=== PATIENT | female | born 1935 | race Caucasian/White ===

== ENCOUNTER 2023-11-23 12:12 | Emergency (ER) | payer OTHER, MEDICARE ==
[2023-11-23 14:29] VITALS: TEMP 97.9; BMI 19.2
[2023-11-23 17:06] LABS: BASO % 0.5 % (0-2.0); EOS % 0.5 % (0-4.5); HEMATOCRIT 35.9 % (32.4-45.2); LYMPH % 10.8 % (8-40); MCH 33.9 pg (25.7-33.7); MCHC 33.4 g/dl (32.0-36.0); MEAN CELL VOLUME 101.7 fl (80-96); MEAN PLT VOLUME 8.9 fl (7.5-11.1); MONO % 12.6 % (3.8-10.2); NEUT % 75.6 % (42.8-82.8); PLATELET COUNT 230 10^3/uL (134-434); RBC 3.53 M/mm3 (3.60-5.2); RDW 21.2 % (11.6-15.6)
[2023-11-23 17:25] LABS: INR 0.97 (0.83-1.09); PROTHROMBIN TIME (PATIENT) 11.3 SEC (9.7-13.0)
[2023-11-23 17:26] LABS: POTASSIUM 4.3 mmol/L (3.5-5.1)
[2023-11-23 17:28] LABS: ACTIVATED PTT 30.3 SECONDS (25.2-36.5); ALBUMIN 3.8 g/dl (3.4-5.0); BLOOD UREA NITROGEN 14.2 mg/dL (7-18); CALCIUM 8.9 mg/dL (8.5-10.1); MAGNESIUM 1.9 mg/dL (1.8-2.4)
[2023-11-23 17:31] LABS: CREATININE 0.5 mg/dL (0.55-1.3)
[2023-11-23 17:33] LABS: BILIRUBIN,TOTAL 0.8 mg/dL (0.2-1); TOT PROT 7.3 g/dl (6.4-8.2)
[2023-11-23 17:51] LABS: ANISOCYTOSIS 2+; MACROCYTOSIS 0
[2023-11-23 18:56] LABS: EPI CELLS 4 /uL (0-25.1); HYALINE CASTS 0 /uL (0-3.1); PH,URINE 7.5 (5.0-8.0); URINE APPEARANCE CLOUDY; URINE BACTERIA >9,000 /uL (0-1359); URINE BILIRUBIN NEGATIVE (NEGATIVE); URINE COLOR YELLOW; URINE GLUCOSE (UA) NEGATIVE (NEGATIVE); URINE KETONE NEGATIVE (NEGATIVE); URINE LEUK ESTERASE 2+ (NEGATIVE); URINE NITRITE NEGATIVE (NEGATIVE); URINE PROTEIN NEGATIVE (NEGATIVE); URINE RBC 49 /uL (0-23.9); URINE UROBILINOGEN 0.2 mg/dL (0.2-1.0); URINE WBC 556 /uL (0-25.8)
[2023-11-24 01:36] VITALS: BP 145/86; PULSE 98; RESP 20
== END 2023-11-24 01:51 ==
LOC: JER 12:12
DX: S01.81XA Laceration without foreign body of other part of head, initial encounter (principal); W18.39XA Other fall on same level, initial encounter; Z20.822 Contact with and (suspected) exposure to COVID-19
CPT/HCPCS: 0241U-QW; 36415; 70450-TC; 71045-TC-FY; 72125-TC; 72170-TC-FY; 73552-TC-LT-FY; 73562-TC-LT-FY; 80053; 81003; 83735; 84484; 85025; 85610; 85730; 87086; 87186; 99285-25

== ENCOUNTER 2025-02-23 00:59 | Inpatient (IN) | payer OTHER, MEDICARE ==
[2025-02-23 02:54] LABS: ABSOLUTE IMMATURE GRANULOCYTES 0.07 x10^3/uL (0.0-0.031); BASOPHILS # 0.05 x10^3/uL (0.01-0.08); EOSINOPHIL % 0.7 % (0.7-5.8); EOSINOPHILS # 0.06 x10^3/uL (0.04-0.36); HEMATOCRIT 34.5 % (34.1-44.9); HEMOGLOBIN 11.2 g/dL (11.2-15.7); MCHC 32.5 g/dl (32.2-35.5); MEAN CELL VOLUME 104.2 fl (79.4-94.8); MEAN PLT VOLUME 10.8 fl (9.4-12.3); MONOCYTE # 1.04 x10^3/uL (0.24-0.86); MONOCYTE % 11.4 % (4.7-12.5); PLATELET COUNT 241 x10^3/uL (182-369); RDW 18.6 % (12.5-17.0)
[2025-02-23 03:02] LABS: INR 1.6 (0.83-1.09); PROTHROMBIN TIME (PATIENT) 17.4 SEC (9.7-13.0)
[2025-02-23 03:04] LABS: ACTIVATED PTT 36.6 SECONDS (25.2-36.5)
[2025-02-23 03:14] LABS: POTASSIUM 3.9 mmol/L (3.5-5.1)
[2025-02-23 03:16] LABS: ALBUMIN 2.8 g/dl (3.4-5.0); BLOOD UREA NITROGEN 16.8 mg/dL (7-18); CALCIUM 8.7 mg/dL (8.5-10.1)
[2025-02-23 03:19] LABS: CREATININE 0.5 mg/dL (0.55-1.3)
[2025-02-23 03:21] LABS: BILIRUBIN,TOTAL 0.8 mg/dL (0.2-1)
[2025-02-23] MEDS ORDERED: PIPERACILLIN/TAZOB 3.375 GM 3.375 GM/50 ML BAG IVPB ONE (03:58)
[2025-02-23] MEDS ORDERED: VANCOMYCIN 1 GM PREMIX (F) 1 GM/200 ML BAG ONE (03:59)
[2025-02-23] MEDS ORDERED: DIPHTH,PERTUSS(ACELL),TET 0.5 ML DISP.SYRIN IM ONE (04:05)
[2025-02-23] MEDS ORDERED: ACETAMINOPHEN 325 MG TABLET (FP) ONE (04:05)
[2025-02-23] MEDS: VANCOMYCIN 1,000 MG in DEXTROSE 5%-WATER - 250 ML IVPB ONE (04:20)
[2025-02-23] MEDS: DIPHTH,PERTUSS(ACELL),TET 0.5 ML DISP.SYRIN IM ONE (04:20)
[2025-02-23] MEDS: ACETAMINOPHEN 325 MG TABLET (FP) PO ONE (04:20)
[2025-02-23] MEDS: PIPERACILLIN/TAZOB 3.375 GM 3.375 GM in DEXTROSE 5%-WATER - 50 ML IVPB ONE (04:20)
[2025-02-23 06:13] LABS: HEMATOCRIT 30.7 % (34.1-44.9); HEMOGLOBIN 10.1 g/dL (11.2-15.7); MCHC 32.9 g/dl (32.2-35.5); MEAN CELL VOLUME 103.7 fl (79.4-94.8); MEAN PLT VOLUME 11.8 fl (9.4-12.3); PLATELET COUNT 237 x10^3/uL (182-369); RDW 18.4 % (12.5-17.0)
[2025-02-23 06:28] LABS: CHLORIDE 102 mmol/L (98-107); POTASSIUM 3.7 mmol/L (3.5-5.1); SODIUM 133 mmol/L (136-145)
[2025-02-23 06:33] LABS: ALBUMIN 2.5 g/dl (3.4-5.0); ANION GAP 8 mmol/L (4-13); BLOOD UREA NITROGEN 15.6 mg/dL (7-18); CALCIUM 8.4 mg/dL (8.5-10.1); CO2 23 mmol/L (21-32); GLUCOSE,RANDOM 126 mg/dL (74-106)
[2025-02-23 06:34] LABS: MAGNESIUM 1.6 mg/dL (1.8-2.4)
[2025-02-23 06:36] LABS: CREATININE 0.4 mg/dL (0.55-1.3); PHOSPHOROUS 3.6 mg/dL (2.5-4.9); SGOT/AST 21 U/L (15-37); SGPT/ALT 14 U/L (13-61)
[2025-02-23 06:38] LABS: BILIRUBIN,TOTAL 0.9 mg/dL (0.2-1); TOT PROT 5.3 g/dl (6.4-8.2)
[2025-02-23 06:40] LABS: ALK PHOS 63 U/L (45-117)
[2025-02-23] MEDS: INSULIN ASPART SLIDING SCALE (NOVOLOG) 1 VIAL SQ SCH (06:44)
[2025-02-23] MEDS: LEVOTHYROXINE NA 75 MCG TABLET (FP) PO SCH (08:41)
[2025-02-23] MEDS: SENNOSIDES 8.6MG TABLET (FP) PO SCH (10:48)
[2025-02-23] MEDS: ACETAMINOPHEN 325 MG TABLET (FP) PO PRN (11:52)
[2025-02-23] MEDS: RIVAROXABAN 15 MG TABLET PO SCH (17:47)
[2025-02-23] MEDS: ACETAMINOPHEN 1000 MG/100 ML BAG IVPB PRN (22:07)
[2025-02-24 08:52] LABS: ABSOLUTE IMMATURE GRANULOCYTES 0.05 x10^3/uL (0.0-0.031); BASOPHILS # 0.05 x10^3/uL (0.01-0.08); EOSINOPHIL % 0.8 % (0.7-5.8); EOSINOPHILS # 0.07 x10^3/uL (0.04-0.36); HEMATOCRIT 30.5 % (34.1-44.9); HEMOGLOBIN 10.2 g/dL (11.2-15.7); MCHC 33.4 g/dl (32.2-35.5); MEAN CELL VOLUME 102.7 fl (79.4-94.8); MEAN PLT VOLUME 11.2 fl (9.4-12.3); MONOCYTE # 1.15 x10^3/uL (0.24-0.86); MONOCYTE % 13.7 % (4.7-12.5); PLATELET COUNT 242 x10^3/uL (182-369); RDW 18.7 % (12.5-17.0)
[2025-02-24 09:15] LABS: POTASSIUM 3.6 mmol/L (3.5-5.1)
[2025-02-24 09:18] LABS: ALBUMIN 2.5 g/dl (3.4-5.0); BLOOD UREA NITROGEN 9.4 mg/dL (7-18)
[2025-02-24 09:21] LABS: CREATININE 0.3 mg/dL (0.55-1.3)
[2025-02-24 09:22] LABS: BILIRUBIN,TOTAL 1.1 mg/dL (0.2-1); TOT PROT 5.2 g/dl (6.4-8.2)
[2025-02-24] MEDS: DEXTROSE 5%-0.45% SALINE 1,000 ML IV SCH (17:41)
[2025-02-25 08:27] LABS: ABSOLUTE IMMATURE GRANULOCYTES 0.05 x10^3/uL (0.0-0.031); BASOPHILS # 0.03 x10^3/uL (0.01-0.08); EOSINOPHIL % 0.8 % (0.7-5.8); EOSINOPHILS # 0.06 x10^3/uL (0.04-0.36); HEMATOCRIT 29.2 % (34.1-44.9); HEMOGLOBIN 9.7 g/dL (11.2-15.7); MCHC 33.2 g/dl (32.2-35.5); MEAN CELL VOLUME 103.5 fl (79.4-94.8); MEAN PLT VOLUME 11.3 fl (9.4-12.3); MONOCYTE # 1.16 x10^3/uL (0.24-0.86); MONOCYTE % 16.4 % (4.7-12.5); PLATELET COUNT 240 x10^3/uL (182-369); RDW 18.5 % (12.5-17.0)
[2025-02-25 08:45] LABS: POTASSIUM 3.7 mmol/L (3.5-5.1)
[2025-02-25 08:50] LABS: CALCIUM 7.5 mg/dL (8.5-10.1)
[2025-02-25 08:51] LABS: ALBUMIN 2.3 g/dl (3.4-5.0); BLOOD UREA NITROGEN 7.6 mg/dL (7-18)
[2025-02-25 08:52] LABS: CREATININE 0.3 mg/dL (0.55-1.3)
[2025-02-25 08:54] LABS: BILIRUBIN,TOTAL 0.9 mg/dL (0.2-1)
[2025-02-25 16:42] LABS: EPI CELLS 4 /uL (0-25.1); HYALINE CASTS 3 /uL (0-3.1); URINE APPEARANCE CLOUDY; URINE BACTERIA >9,000 /uL (0-1359); URINE BILIRUBIN 1+ (NEGATIVE); URINE COLOR DK YELLOW; URINE GLUCOSE (UA) NEGATIVE (NEGATIVE); URINE KETONE TRACE (NEGATIVE); URINE LEUK ESTERASE 2+ (NEGATIVE); URINE NITRITE POSITIVE (NEGATIVE); URINE PROTEIN 1+ (NEGATIVE); URINE RBC 178 /uL (0-23.9); URINE WBC 664 /uL (0-25.8)
[2025-02-25 23:51] VITALS: BMI 17.5
[2025-02-26 08:51] LABS: HEMATOCRIT 30.3 % (34.1-44.9); HEMOGLOBIN 9.9 g/dL (11.2-15.7); MCHC 32.7 g/dl (32.2-35.5); MEAN CELL VOLUME 103.8 fl (79.4-94.8); MEAN PLT VOLUME 10.5 fl (9.4-12.3); PLATELET COUNT 198 x10^3/uL (182-369); RDW 18.2 % (12.5-17.0)
[2025-02-26] MEDS: IRON SUCROSE INJECTION 200 MG in SODIUM CHLORIDE 100 ML IVPB ONE (09:11)
[2025-02-26 09:52] LABS: POTASSIUM 3.4 mmol/L (3.5-5.1)
[2025-02-26 10:43] LABS: CALCIUM 7.7 mg/dL (8.5-10.1)
[2025-02-26 10:44] LABS: ALBUMIN 2.3 g/dl (3.4-5.0); BLOOD UREA NITROGEN 4.2 mg/dL (7-18)
[2025-02-26 10:47] LABS: CREATININE 0.2 mg/dL (0.55-1.3)
[2025-02-26 10:48] LABS: BILIRUBIN,TOTAL 0.8 mg/dL (0.2-1)
[2025-02-26] MEDS: PIPERACILLIN/TAZOB 3.375 GM 3.375 GM in DEXTROSE 5%-WATER - 50 ML IVPB SCH (12:10)
[2025-02-26] MEDS: POTASSIUM CHLORIDE ORAL LIQUID 20 MEQ/15 ML PO ONE (14:17)
[2025-02-26] MEDS: ALBUTEROL SO4 2.5/IPRATROPIUM 0.5 INH SOL 3 ML VIAL.NEB. NEB SCH (15:10)
[2025-02-26] MEDS: AMOX TR/POT CLAV 500MG/125MG TABLETS (FP) PO SCH (17:15)
[2025-02-26] MEDS: MIDODRINE HCL 2.5 MG TABLET PO SCH (17:15)
[2025-02-27 01:10] VITALS: RESP 18
[2025-02-27 09:10] LABS: POTASSIUM 3.3 mmol/L (3.5-5.1)
[2025-02-27 09:20] LABS: BLOOD UREA NITROGEN 6.6 mg/dL (7-18)
[2025-02-27] MEDS: FUROSEMIDE 20 MG TABLET (FP) PO SCH (09:21)
[2025-02-27] MEDS: PANTOPRAZOLE 40 MG TABLET PO SCH (09:21)
[2025-02-27] MEDS: POTASSIUM CHLORIDE ORAL LIQUID 20 MEQ/15 ML PO SCH (09:22)
[2025-02-27] MEDS: POLYETHYLENE GLYCOL (HEALTHYLAX) 3350 17 GM PACKET PO SCH (09:22)
[2025-02-27 09:25] LABS: CREATININE 0.2 mg/dL (0.55-1.3)
[2025-02-27 10:35] VITALS: TEMP 98.2
[2025-02-27] MEDS: KCL 10 MEQ IVPB 10 MEQ/100 ML INFUS.BAG IVPB SCH (12:33)
[2025-02-27 14:36] VITALS: BP 89/55; PULSE 93
== END 2025-02-27 16:00 | DRG 312 ==
LOC: JER 00:59 → JERBED 04:19 → J6S 06:09 → OBSVTOIN 17:12
PROVIDERS: ADMIT Student in an Organized Health Care Education/Training Program; ATTEND Family Medicine
DX: R55 Syncope and collapse (principal); E43 Unspecified severe protein-calorie malnutrition; R64 Cachexia; Z68.1 Body mass index [BMI] 19.9 or less, adult; E44.1 Mild protein-calorie malnutrition; E03.9 Hypothyroidism, unspecified; I10 Essential (primary) hypertension; I48.0 Paroxysmal atrial fibrillation; I08.1 Rheumatic disorders of both mitral and tricuspid valves; J47.9 Bronchiectasis, uncomplicated; L89.621 Pressure ulcer of left heel, stage 1; L89.611 Pressure ulcer of right heel, stage 1; R26.81 Unsteadiness on feet; R41.89 Other symptoms and signs involving cognitive functions and awareness; M81.0 Age-related osteoporosis without current pathological fracture; D64.9 Anemia, unspecified; S80.01XA Contusion of right knee, initial encounter; S01.81XA Laceration without foreign body of other part of head, initial encounter; W06.XXXA Fall from bed, initial encounter; Y93.9 Activity, unspecified; Y92.128 Other place in nursing home as the place of occurrence of the external cause; Y99.9 Unspecified external cause status; Z86.718 Personal history of other venous thrombosis and embolism; Z96.651 Presence of right artificial knee joint
CPT/HCPCS: 0241U-QW; 36415; 70450-TC; 70486-TC; 71045-TC-FY; 71250-TC; 72125-TC; 73502-TC-RT-FY; 73564-TC-RT-FY; 80048; 80053; 81003; 82272; 82607; 82746; 82962; 83540; 83550; 83735; 84100; 84484; 85025; 85027; 85610; 85730; 90715; 93005; 93010; 93306-TC; 94640; 97161-GP; 99285-25; G0378; J0131; J1756

== ENCOUNTER 2025-05-04 20:24 | Inpatient (IN) | payer OTHER, MEDICARE ==
[2025-05-04 21:48] LABS: ABSOLUTE IMMATURE GRANULOCYTES 0.10 x10^3/uL (0.0-0.031); BASOPHILS # 0.05 x10^3/uL (0.01-0.08); EOSINOPHIL % 1.0 % (0.7-5.8); EOSINOPHILS # 0.11 x10^3/uL (0.04-0.36); MCHC 33.1 g/dl (32.2-35.5); MEAN CELL VOLUME 107.0 fl (79.4-94.8); MEAN PLT VOLUME 10.7 fl (9.4-12.3); MONOCYTE # 1.26 x10^3/uL (0.24-0.86); MONOCYTE % 11.1 % (4.7-12.5); RDW 21.2 % (12.5-17.0)
[2025-05-04 21:57] LABS: INR 1.87 (0.83-1.09); PROTHROMBIN TIME (PATIENT) 20.6 SEC (9.7-13.0)
[2025-05-04 22:00] LABS: ACTIVATED PTT 34.2 SECONDS (25.2-36.5)
[2025-05-04 22:09] LABS: CO2 27.0 mmol/L (21-32); GLUCOSE,RANDOM 97.0 mg/dL (74-106)
[2025-05-04 22:11] LABS: CREATININE 0.4 mg/dL (0.55-1.3); SGOT/AST 28.0 U/L (15-37); SGPT/ALT 15.0 U/L (13-61)
[2025-05-04 22:12] LABS: TOT PROT 5.0 g/dl (6.4-8.2)
[2025-05-04 22:13] LABS: ALK PHOS 69.0 U/L (45-117)
[2025-05-04 22:59] LABS: HIV INTERPRETATION NEGATIVE (NEGATIVE)
[2025-05-04 23:00] LABS: HCV DIAGNOSTIC IN-HOUSE W/RFLX NON-REACTIVE (NONREACTIVE)
[2025-05-05 02:37] LABS: ABSOLUTE IMMATURE GRANULOCYTES 0.06 x10^3/uL (0.0-0.031); BASOPHILS # 0.03 x10^3/uL (0.01-0.08); EOSINOPHIL % 1.5 % (0.7-5.8); EOSINOPHILS # 0.10 x10^3/uL (0.04-0.36); MCHC 33.2 g/dl (32.2-35.5); MEAN CELL VOLUME 106.9 fl (79.4-94.8); MEAN PLT VOLUME 11.4 fl (9.4-12.3); MONOCYTE # 0.92 x10^3/uL (0.24-0.86); MONOCYTE % 13.4 % (4.7-12.5); RDW 21.4 % (12.5-17.0)
[2025-05-05] MEDS: SODIUM CHLORIDE 1,000 ML IV STA (02:59)
[2025-05-05] MEDS ORDERED: ALBUTEROL SO4 2.5/IPRATROPIUM 0.5 INH SOL 3 ML VIAL.NEB. NEB PRN (07:40)
[2025-05-05] MEDS ORDERED: ACETAMINOPHEN 1000 MG/100 ML BAG IVPB PRN (08:00)
[2025-05-05 09:57] LABS: ABSOLUTE IMMATURE GRANULOCYTES 0.06 x10^3/uL (0.0-0.031); BASOPHILS # 0.04 x10^3/uL (0.01-0.08); EOSINOPHIL % 1.6 % (0.7-5.8); EOSINOPHILS # 0.10 x10^3/uL (0.04-0.36); MCHC 32.6 g/dl (32.2-35.5); MEAN CELL VOLUME 106.7 fl (79.4-94.8); MEAN PLT VOLUME 10.9 fl (9.4-12.3); MONOCYTE # 0.78 x10^3/uL (0.24-0.86); MONOCYTE % 12.5 % (4.7-12.5); RDW 21.0 % (12.5-17.0)
[2025-05-05] MEDS ORDERED: MIDODRINE HCL 2.5 MG TABLET PO SCH (10:00)
[2025-05-05] MEDS ORDERED: PANTOPRAZOLE SODIUM 40 MG VIAL IVPUSH SCH (10:00)
[2025-05-05] MEDS: DEXTROSE 5%-NORMAL SALINE 1,000 ML IV SCH (11:38)
[2025-05-05] MEDS: PANTOPRAZOLE SODIUM 40 MG VIAL IVPUSH SCH (11:39)
[2025-05-05] MEDS: MIDODRINE HCL 2.5 MG TABLET PO SCH (11:39)
[2025-05-05 12:11] LABS: CREATININE 0.3 mg/dL (0.55-1.3); GLUCOSE,RANDOM 85.0 mg/dL (74-106)
[2025-05-05 12:12] LABS: CO2 25.0 mmol/L (21-32)
[2025-05-05] MEDS: CALCIUM CARBONATE 650 MG TABLET PO SCH (12:17)
[2025-05-05 15:50] LABS: MCHC 33.5 g/dl (32.2-35.5); MEAN CELL VOLUME 101.1 fl (79.4-94.8); MEAN PLT VOLUME 11.3 fl (9.4-12.3); RDW 22.0 % (12.5-17.0)
[2025-05-06] MEDS: LEVOTHYROXINE NA 75 MCG TABLET (FP) PO SCH (06:01)
[2025-05-06 08:50] LABS: MCHC 33.1 g/dl (32.2-35.5); MEAN CELL VOLUME 101.0 fl (79.4-94.8); MEAN PLT VOLUME 10.9 fl (9.4-12.3); RDW 23.3 % (12.5-17.0)
[2025-05-06 08:59] LABS: CO2 24.0 mmol/L (21-32); GLUCOSE,RANDOM 91.0 mg/dL (74-106)
[2025-05-06 09:02] LABS: CREATININE 0.3 mg/dL (0.55-1.3); SGOT/AST 24.0 U/L (15-37); SGPT/ALT 15.0 U/L (13-61)
[2025-05-06 09:04] LABS: TOT PROT 4.5 g/dl (6.4-8.2)
[2025-05-06 09:05] LABS: ALK PHOS 61.0 U/L (45-117)
[2025-05-06] MEDS: SODIUM CHLORIDE 250 ML IV STA (19:42)
[2025-05-07 08:58] LABS: MCHC 33.1 g/dl (32.2-35.5); MEAN CELL VOLUME 101.7 fl (79.4-94.8); MEAN PLT VOLUME 11.0 fl (9.4-12.3); RDW 21.9 % (12.5-17.0)
[2025-05-07] MEDS: PANTOPRAZOLE 40 MG TABLET PO SCH (10:29)
[2025-05-07 12:11] LABS: ABSOLUTE IMMATURE GRANULOCYTES 0.06 x10^3/uL (0.0-0.031); BASOPHILS # 0.04 x10^3/uL (0.01-0.08); EOSINOPHIL % 0.2 % (0.7-5.8); EOSINOPHILS # 0.02 x10^3/uL (0.04-0.36); MCHC 34.1 g/dl (32.2-35.5); MEAN CELL VOLUME 100.4 fl (79.4-94.8); MEAN PLT VOLUME 11.3 fl (9.4-12.3); MONOCYTE # 1.25 x10^3/uL (0.24-0.86); MONOCYTE % 13.7 % (4.7-12.5); RDW 21.6 % (12.5-17.0)
[2025-05-07 14:24] VITALS: BMI 16.6
[2025-05-07 15:10] LABS: EPI CELLS 61.3 /uL (0-25.1); HYALINE CASTS 16.64 /uL (0-3.1); URINE BACTERIA 3568.7 /uL (0-1359); URINE RBC 404.7 /uL (0-23.9)
[2025-05-07 15:14] LABS: URINE APPEARANCE TURBID; URINE BILIRUBIN 1+ (NEGATIVE); URINE COLOR DK YELLOW; URINE GLUCOSE (UA) NEGATIVE (NEGATIVE)
[2025-05-07 15:15] LABS: URINE KETONE NEGATIVE (NEGATIVE); URINE LEUK ESTERASE 3+ (NEGATIVE); URINE NITRITE POSITIVE (NEGATIVE); URINE PROTEIN 2+ (NEGATIVE); URINE UROBILINOGEN 1.0 mg/dL (0.2-1.0)
[2025-05-07 15:51] VITALS: RESP 18
[2025-05-08 16:05] VITALS: BP 110/72; PULSE 81; TEMP 97.7
== END 2025-05-08 18:36 | DRG 378 ==
LOC: JER 20:24 → JERBED 23:01 → J5S 05-05 01:11
PROVIDERS: ADMIT Family Medicine; ATTEND Family Medicine
DX: K92.2 Gastrointestinal hemorrhage, unspecified (principal); D68.9 Coagulation defect, unspecified; Z68.1 Body mass index [BMI] 19.9 or less, adult; R64 Cachexia; I48.0 Paroxysmal atrial fibrillation; E03.9 Hypothyroidism, unspecified; I10 Essential (primary) hypertension; F03.90 Unspecified dementia, unspecified severity, without behavioral disturbance, psychotic disturbance, mood disturbance, and anxiety; E11.9 Type 2 diabetes mellitus without complications; R13.11 Dysphagia, oral phase; R41.89 Other symptoms and signs involving cognitive functions and awareness; R00.0 Tachycardia, unspecified; I11.0 Hypertensive heart disease with heart failure; I50.9 Heart failure, unspecified; L89.621 Pressure ulcer of left heel, stage 1; Z96.651 Presence of right artificial knee joint; Z86.718 Personal history of other venous thrombosis and embolism; Z87.11 Personal history of peptic ulcer disease
CPT/HCPCS: 36415; 36430; 71045-TC-FY; 80048; 80053; 81003; 82272; 83735; 84100; 84443; 85025; 85027; 85610; 85730; 86803; 86850; 86900; 86901; 86922; 87086; 87389; 87635; 93005; 93010; 99285-25; P9038; P9058